=== PATIENT | male | born 1995 | race Caucasian/White ===

== ENCOUNTER 2019-05-02 05:16 | Inpatient (IN) | payer MEDICAID ==
[2019-05-02] VITALS (10 sets, daily range): BP systolic 132–156; BP diastolic 64–89; PULSE 76–102; RESP 16–21; Ht 160 cm; Wt 65.0 kg
[~2019-05-02] VITALS: Ht 160 cm; Wt 65.0 kg
[~2019-05-02 05:16] MED LIST: CIPR500T4 PO; HYDR-4011 PO; METR-122 PO; WORK NOTE
[2019-05-02] MEDS ORDERED: SOD CHLORIDE 0.9% 1,000 ML IV STA (06:50)
[2019-05-02] MEDS ORDERED: ONDANSETRON 4 MG INJ IV STA (06:50)
[2019-05-02] MEDS ORDERED: morphine 4 MG/ML VIAL IV STA (06:50)
[2019-05-02] MEDS ORDERED: ONDANSETRON 4 MG INJ IV PRN ×2 (08:30→18:00)
[2019-05-02] MEDS ORDERED: PIPER-TAZO 3.375 GM IV (PMX) 100 ML IVPB ONE (08:30)
[2019-05-02] MEDS ORDERED: ACETAMINOPHEN 325 MG TAB PO PRN ×2 (08:30→09:30)
[2019-05-02] MEDS ORDERED: ONDANSETRON 4 MG TAB PO PRN (09:30)
[2019-05-02] MEDS ORDERED: ZOLPIDEM 5 MG TAB PO PRN (09:30)
[2019-05-02] MEDS ORDERED: DOCUSATE SODIUM 100 MG CAP PO PRN (09:30)
[2019-05-02] MEDS ORDERED: NACL 0.9% 3 ML SYG IV SCH (09:30)
[2019-05-02] MEDS: HYDROCODONE/APAP (5/325) TAB PO PRN ×2 (10:02→20:41)
[2019-05-02] MEDS ORDERED: IOHEXOL 300MG/ML 150 ML BTL ONE (10:19)
[2019-05-02] MEDS ORDERED: SOD CHLORIDE 0.9% 100 ML ONE (10:19)
[2019-05-02] MEDS: PIPER-TAZO 3.375 GM IV (PMX) 100 ML IVPB SCH ×2 (14:13→21:04)
[2019-05-02] MEDS ORDERED: PROPOFOL 200 MG INJ ONE (17:00)
[2019-05-02] MEDS ORDERED: LIDOCAINE 2% (SDV) 5 ML INJ ONE (17:00)
[2019-05-02] MEDS ORDERED: ROCURONIUM 50 MG INJ ONE (17:00)
[2019-05-02] MEDS ORDERED: NEOSTIGMINE 3 MG/3 ML SYRINGE ONE (17:00)
[2019-05-02] MEDS ORDERED: CEFAZOLIN 1 GM INJ ONE (17:00)
[2019-05-02] MEDS ORDERED: SUCCINYLCHOLINE CHLORIDE 100 MG/5 ML SYG IV ONE (17:00)
[2019-05-02] MEDS ORDERED: GLYCOPYRROLATE 0.4 MG INJ ONE (17:00)
[2019-05-02] MEDS ORDERED: ONDANSETRON 4 MG INJ ONE (17:01)
[2019-05-02] MEDS ORDERED: MIDAZOLAM 1 MG/ML 2 ML INJ ONE (17:01)
[2019-05-02] MEDS ORDERED: FENTAnyl 50 MCG/ML VIAL ONE ×2 (17:01→17:51)
[2019-05-02] MEDS ORDERED: FAMOTIDINE 20 MG INJ ONE (17:01)
[2019-05-02] MEDS ORDERED: DEXAMETHASONE 4 MG/ML 5 ML INJ ONE (17:01)
[2019-05-02] MEDS ORDERED: ROPIVACAINE 0.5 % 30 ML VIAL ONE (17:20)
[2019-05-02] MEDS ORDERED: LIDOCAINE 1% (MPF) 30 ML INJ ONE (17:28)
[2019-05-02] MEDS ORDERED: BUPIVACAINE 0.5%/EPI (SDV) 30 ML INJ ONE (17:28)
[2019-05-02] MEDS ORDERED: OXYCODONE/ACETAMINOPHEN (5/325) TAB PO PRN ×2 (18:00)
[2019-05-02] MEDS ORDERED: FENTAnyl 50 MCG/ML VIAL IV PRN ×2 (18:00)
[2019-05-02] MEDS ORDERED: HYDROmorphONE 1 MG/5 ML IV SYRINGE IV PRN ×2 (18:00)
[2019-05-02] MEDS ORDERED: KETOROLAC 30 MG INJ ONE (18:05)
[2019-05-02] MEDS: FAMOTIDINE 20 MG INJ IV SCH (20:41)
[2019-05-03 03:46] VITALS: BP 119/64; PULSE 78; RESP 20
[2019-05-03] MEDS: PIPER-TAZO 3.375 GM IV (PMX) 100 ML IVPB SCH ×3 (06:16→22:52)
[2019-05-03] MEDS: HYDROCODONE/APAP (5/325) TAB PO PRN (06:16)
[2019-05-03 07:59] VITALS: BP 127/77; PULSE 82; RESP 14
[2019-05-03] MEDS: FAMOTIDINE 20 MG INJ IV SCH (08:24)
[2019-05-03 15:07] VITALS: BP 124/74; PULSE 68; RESP 12
[2019-05-03 19:59] VITALS: BP 136/83; PULSE 71; RESP 18
[2019-05-03] MEDS: FAMOTIDINE 20 MG TAB PO SCH (22:51)
[2019-05-04 02:06] VITALS: BP 113/66; PULSE 53; RESP 18
[2019-05-04] MEDS: PIPER-TAZO 3.375 GM IV (PMX) 100 ML IVPB SCH (06:36)
[2019-05-04 08:00] VITALS: BP 117/79; PULSE 60; RESP 18
[2019-05-04] MEDS: FAMOTIDINE 20 MG TAB PO SCH (09:00)
== END 2019-05-04 12:11 | disposition home or self-care (01) | DRG 340 ==
LOC: FTE 05:16 → REC 08:29 → MS1 20:00
PROVIDERS: ADMIT Internal Medicine; ATTEND Internal Medicine
PROC: 0DTJ4ZZ Resection of Appendix, Percutaneous Endoscopic Approach (ICD-10-PCS; principal; 2019-05-02 15:30)
DX: K35.32 Acute appendicitis with perforation, localized peritonitis, and gangrene, without abscess (principal); E80.6 Other disorders of bilirubin metabolism
CPT/HCPCS: 36415; 74177; 76705; 80048; 80053; 81001; 83690; 85025; 85610; 85730; 88304; 93306; 96361; 96374; 96375; J0690; J1100; J1885; J2250; J2270; J2405; J2543; J2710; J2795; J3010; J7030; Q9967